=== PATIENT | female | born 1995 | race Caucasian/White ===

== ENCOUNTER 2024-02-05 23:38 | Emergency (ER) | payer BC ==
[~2024-02-05] VITALS: Ht 167.6 cm; Wt 106.6 kg
[2024-02-06 00:03] VITALS: BP 133/84; TEMP 99.1; O2SAT 99
[2024-02-06] MEDS ORDERED: TDAP [DIPH/PERTUSSIS/TET] 0.5 ML VIAL IM ONE (00:24)
[2024-02-06] MEDS ORDERED: AMOX-430 PO (00:27)
[2024-02-06] MEDS: TDAP [DIPH/PERTUSSIS/TET] 0.5 ML VIAL IM ONE (00:27)
== END 2024-02-06 00:33 | disposition home or self-care (01) ==
LOC: ER 23:44
DX: S51.851A Open bite of right forearm, initial encounter (principal); S50.811A Abrasion of right forearm, initial encounter; E11.9 Type 2 diabetes mellitus without complications; W55.01XA Bitten by cat, initial encounter; Y93.89 Activity, other specified; Y92.89 Other specified places as the place of occurrence of the external cause; Y99.8 Other external cause status
CPT/HCPCS: 90715